=== PATIENT | male | born 1955 | race Caucasian/White ===

== ENCOUNTER 2019-12-16 12:26 | Emergency (ER) | payer OTHER ==
[~2019-12-16] VITALS: Ht 172.7 cm; Wt 88.0 kg
[2019-12-16 12:26] VITALS: BP_SYST 169
--- NOTE | 2019-12-16 12:26 | NUR ---
ASSISTED OUT OF CAR TO WHEELCHAIR, BROUGHT BACK TO BED #4 AND TRIAGED. REPORT GIVEN TO SARAH BETH
--- NOTE | 2019-12-16 12:40 | NUR ---
Pt came to ER for dizziness and HTN x2 weeks. Pt resting in BETI harris4, on monitor awaiting
--- NOTE | 2019-12-16 13:10 | NUR ---
ER Dr. Torres at bedside examining patient with Korina ROTH for translation.
[2019-12-16] MEDS ORDERED: DIAZEPAM 5 MG TABLET (VALIUM) PO ONE (13:15)
[2019-12-16] MEDS ORDERED: cloNIDine HCL 0.1 MG TABLET PO ONE (13:15)
--- NOTE | 2019-12-16 13:20 | NUR ---
Kristie mcdaniel in ED - 12/16/19 at 1350 by SDEDDW XIOMARA Guillen at bedside examining patient.
--- NOTE | 2019-12-16 13:45 | NUR ---
Pt resting in gurney comfortably, no distress noted.
[2019-12-16 14:05] VITALS: BP_SYST 156
--- NOTE | 2019-12-16 14:05 | NUR ---
Patient given written and verbal discharge instructions and verbalizes understanding. ER MD discussed with patient the results and treatment provided. Patient in stable condition. ID arm band removed. Rx of Valium given. Patient educated on pain management and to follow up with PMD. Pain Scale 0/10. Opportunity for questions provided and answered. Medication side effect fact sheet provided.
== END 2019-12-16 14:05 | disposition home or self-care (01) ==
LOC: SED 12:26
DX: H81.10 Benign paroxysmal vertigo, unspecified ear (principal); I10 Essential (primary) hypertension; E11.9 Type 2 diabetes mellitus without complications
CPT/HCPCS: 93005; 99283

== ENCOUNTER 2019-12-19 23:01 | Emergency (ER) | payer OTHER ==
[~2019-12-19] VITALS: Ht 172.7 cm; Wt 88.0 kg
[2019-12-19 23:20] VITALS: BP_SYST 174
--- NOTE | 2019-12-19 23:20 | NUR ---
Patient to ER bed 05 to gown for evaluation. Side rails up.
--- NOTE | 2019-12-19 23:22 | NUR ---
PATIENT PRESENTS TO ER WITH C/O ABDOMINAL PAIN. PATIENT LIBYAN SPEAKING. PATIENT STATES PAIN BEGAN 3 HOURS AGO WITH NAUSEA AND 1 EPISODE OF NON-BLOODY EMESIS. PATIENT STATES PAIN IS 8/10. PATIENT DENIES TAKING ANYTHING FOR PAIN RELIEF. PATIENT STATES PAIN IS BETTER WITH LYING DOWN STILL AND WORSE WITH AMBULATION. PATIENT DENIES DIARRHEA, URINE FREQUENCY, AND PAIN WITH URINATION. PAIN IS PRESENT IN LOWER RIGHT QUADRANT. PATIENT A&OX4. GCS 15. NO TRACHEAL DEVIATION NOTED. ABDOMEN SOFT AND NON DISTENDED WITH BOWEL SOUNDS HEARD IN ALL FOUR QUADRANTS. PATIENT STATES LAST BM WAS THIS MORNING AND DESCRIBES BM "NORMAL". P/M/S/C NOTED IN ALL FOUR QUADRANTS. 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 C/D/I SKIN. AWAITING FURTHER ORDERS. BED IN LOWEST POSITION WITH SIDE RAILS ELEVATED. WILL CONTINUE TO MONITOR.
--- NOTE | 2019-12-19 23:25 | NUR ---
ER Dr. Lama at bedside examining patient.
[2019-12-19] MEDS ORDERED: NACL 0.9% 1,000 ML IV ONE (23:45)
[2019-12-19] MEDS ORDERED: MORPHINE 2 MG/ML INJ. SYRINGE IVP ONE (23:45)
[2019-12-19] MEDS ORDERED: ONDANSETRON HCL 4 MG/2 ML VIAL IVP ONE (23:45)
--- NOTE | 2019-12-19 23:47 | NUR ---
PATIENT OFF UNIT TO RADIOLOGY VIA GURNEY IN STABLE CONDITION.
[2019-12-20 00:25] LABS: BASOPHILS % (AUTO) 0.2 % (0.0-2.0); EOSINOPHILS # (AUTO) 0.1 K/uL (0.0-0.4); EOSINOPHILS % (AUTO) 0.5 % (0.0-4.0); HEMATOCRIT 45.5 % (36-54); HEMOGLOBIN 15.4 g/dL (14.0-18.0); LYMPHOCYTES % (AUTO) 6.4 % (20.5-51.5); MEAN CORPUSCULAR HEMOGLOBIN 31 pg (27-31); MEAN CORPUSCULAR HGB CONC 34 % (32-36); MEAN CORPUSCULAR VOLUME 92 fL (79.0-98.0); MONOCYTES # (AUTO) 0.7 K/uL (0.0-1.0); MONOCYTES % (AUTO) 4.3 % (1.7-9.3); NEUTROPHILS # (AUTO) 13.5 K/uL (1.8-7.7); NEUTROPHILS % (AUTO) 88.6 % (40.0-70.0); PLATELET COUNT (AUTO) 254 K/uL (130-430); RED BLOOD CELL COUNT(AUTO) 4.96 MIL/uL (4.2-6.2); RED CELL DISTRIBUTION WIDTH 13.1 % (9.0-15.0); WHITE BLOOD COUNT (AUTO) 15.2 K/uL (4.8-10.8)
[2019-12-20 00:36] LABS: CALCIUM 8.6 mg/dL (8.4-11.0); CREATININE 1.19 mg/dL (0.55-1.30); POTASSIUM 3.5 mmol/L (3.5-5.1)
[2019-12-20 00:42] LABS: ALBUMIN 3.3 g/dL (3.4-4.8); TOTAL BILIRUBIN 0.7 mg/dL (0.0-1.0)
--- NOTE | 2019-12-20 00:49 | NUR ---
ASSISTED PATIENT TO RESTROOM TO COLLECT URINE SAMPLE. URINE SAMPLE COLLECTED VIA CLEAN CATCH AND SENT TO LAB. PATIENT AMBULATED BACK TO BED WITH STEADY GAIT. WILL CONTINUE MONITOR.
[2019-12-20 00:57] LABS: BILIRUBIN,URINE NEGATIVE (NEGATIVE); BLOOD, URINE 1+ (NEGATIVE); CLARITY/URINE CLEAR (CLEAR); COLOR,URINE YELLOW (YELLOW); GLUCOSE,URINE NEGATIVE (NEGATIVE); KETONES,URINE 1+ (NEGATIVE); LEUKOCYTE ESTERASE ,URINE NEGATIVE (NEGATIVE); NITRITE, URINE NEGATIVE (NEGATIVE); PROTEIN URINE 2+ (NEGATIVE)
[2019-12-20 01:01] LABS: BACTERIA,URINE RARE /HPF (None Seen); WBC,URINE 0-3 /HPF (0-3)
[2019-12-20 01:35] VITALS: BP_SYST 152
--- NOTE | 2019-12-20 01:35 | NUR ---
Patient given written and verbal discharge instructions and verbalizes understanding. ER MD SEN discussed with patient the results and treatment provided. Patient in stable condition. ID arm band removed. IV catheter removed intact and dressing applied, no active bleeding. Rx of BENTYL given. Patient educated on pain management and to follow up with PMD. Pain Scale 0/10. Opportunity for questions provided and answered. Medication side effect fact sheet provided.
== END 2019-12-20 01:35 | disposition home or self-care (01) ==
LOC: SED 23:01
DX: R10.31 Right lower quadrant pain (principal); I10 Essential (primary) hypertension; E11.9 Type 2 diabetes mellitus without complications; R11.10 Vomiting, unspecified
CPT/HCPCS: 36415; 74176; 80053; 81000; 83605; 83690; 85025; 87040; 93005; 96361; 96374; 96375; 99285; J2270; J2405; J7030